=== PATIENT | female | born 1960 | race Caucasian/White ===

== ENCOUNTER 2019-12-13 06:05 | Day surgery (SDC) | payer MEDICAID ==
[~2019-12-13] VITALS: Ht 142.2 cm; Wt 57.7 kg
[~2019-12-13 06:05] MED LIST: SODIUM CHLORIDE 0.9% 1,000 ML ONE
[2019-12-13] MEDS ORDERED: SODIUM CHLORIDE 0.9% 1,000 ML IV ONE (06:30)
[2019-12-13] MEDS ORDERED: PRED10 PO (07:14)
[2019-12-13] MEDS ORDERED: FLUT16H NASAL (07:14)
[2019-12-13] MEDS ORDERED: MONT10TA26 PO (07:14)
[2019-12-13] MEDS ORDERED: GABA-531 PO (07:14)
[2019-12-13] MEDS ORDERED: DOXY100C2 PO (07:14)
[2019-12-13] MEDS ORDERED: LACT10SO75 PO (07:14)
[2019-12-13] MEDS ORDERED: ALBU90AE2 IH (07:14)
[2019-12-13] MEDS ORDERED: OMEP20CA12 PO (07:14)
[2019-12-13] MEDS ORDERED: D-ME473S53 PO (07:14)
[2019-12-13] MEDS ORDERED: SUCR1TAB PO (07:14)
[2019-12-13] MEDS ORDERED: FentaNYL CITRATE-PF 100 MCG/2 ML VIAL ONE (07:36)
[2019-12-13] MEDS ORDERED: MIDAZOLAM HCL 2 MG/2 ML VIAL ONE (07:36)
[2019-12-13] MEDS ORDERED: MethylPREDNISolone SOD SUCC 125 MG/2 ML VIAL IVP ONE (08:45)
[2019-12-13] MEDS ORDERED: MethylPREDNISolone SOD SUCC 125 MG/2 ML VIAL ONE (08:46)
[2019-12-13] MEDS ORDERED: ALBUTEROL SULFATE 2.5 MG/0.5 ML NEB SOLUTION NEB ONE ×2 (09:45→12:00)
[2019-12-13] MEDS ORDERED: IPRATROPIUM BROMIDE 0.5 MG/2.5 ML NEB SOLUTION NEB ONE (09:45)
[2019-12-13] MEDS ORDERED: BENZOCAINE 20% 50 MCG/SPRAY 57 GM TP ONE (12:00)
[2019-12-13] MEDS ORDERED: LIDOCAINE 2% 30 ML JELLY TP ONE (12:00)
[2019-12-13] MEDS ORDERED: LIDOCAINE 4% 50 ML SOLUTION TP ONE (12:00)
[2019-12-13] MEDS ORDERED: OXYGEN THERAPY IH SCH (20:00)
== END 2019-12-13 10:20 | disposition home or self-care (01) ==
LOC: SURGERY 06:05
PROVIDERS: ATTEND Internal Medicine Critical Care Medicine
DX: R05 Cough (principal); R91.1 Solitary pulmonary nodule; J34.89 Other specified disorders of nose and nasal sinuses; J98.8 Other specified respiratory disorders; J38.4 Edema of larynx; B37.0 Candidal stomatitis
CPT/HCPCS: 31623; 31624; 71045; 87015; 87070; 87077; 87101; 87186; 87205; 87206; 87220; J2250; J2930; J3010; J7030; 88108; 88312